=== PATIENT | female | born 1935 | race Caucasian/White ===

== ENCOUNTER 2016-06-11 18:22 | Emergency (ER) | payer OTHER, MEDICARE ==
[~2016-06-11] VITALS: Ht 152.4 cm; Wt 36.7 kg
[2016-06-11 18:26] VITALS: BP 153/93; PULSE 72; RESP 16; TEMP 98; O2SAT 96
[2016-06-11] MEDS ORDERED: BACITRACIN 1 GM OINT TP ONE (20:00)
[2016-06-11] MEDS ORDERED: DIPH-TET-PERTUS Vaccine 0.5 ML VIAL (ADACEL) IM ONE (20:00)
[2016-06-11 20:16] VITALS: BP 143/82; PULSE 82; RESP 16; TEMP 98; O2SAT 96
== END 2016-06-11 20:16 | disposition home or self-care (01) ==
LOC: SED 18:22
DX: S41.111A Laceration without foreign body of right upper arm, initial encounter (principal); F17.200 Nicotine dependence, unspecified, uncomplicated; I10 Essential (primary) hypertension; K21.9 Gastro-esophageal reflux disease without esophagitis; F41.9 Anxiety disorder, unspecified; F32.9 Major depressive disorder, single episode, unspecified; M19.90 Unspecified osteoarthritis, unspecified site; Z88.5 Allergy status to narcotic agent; Z71.6 Tobacco abuse counseling; W45.8XXA Other foreign body or object entering through skin, initial encounter; Y93.89 Activity, other specified; Y99.8 Other external cause status; Y92.89 Other specified places as the place of occurrence of the external cause
CPT/HCPCS: 90715; 99283